=== PATIENT | male | born 1955 | race Caucasian/White ===

== ENCOUNTER 2020-10-29 10:49 | Emergency (ER) | payer SELFPAY ==
[~2020-10-29 10:49] MED LIST: ALDACTONE25 MG PO; CERTAGEN1 EACH PO; FEROSUL325 MG PO; FUROSEMIDE 40MG40 MG PO; IBUPROFEN400 MG PO; K-DUR20 MEQ PO; LANSOPRAZOLE30 M1 SL; OMEPRAZOLE40 MG PO; PROPRANOLOL HCL80 M1 PO
[2020-10-29 12:01] LABS: BASOPHIL 0.7 % (0-2); EOSINOPHIL 5.2 % (0-5); HCT 32.1 % (42.0-52.0); HGB 9.8 g/dl (13.2-18.0); LYMPHOCYTE 30.3 % (15-48); MCH 22.1 pg (25.0-31.0); MCHC 30.5 g/dL (32.0-36.0); MCV 72.3 fL (78.0-100.0); MONOCYTE 11.6 % (0-12); MPV 10.8 fL (6.0-9.5); NEUTROPHIL 51.8 % (41-80); NRBC 0; PLT 139 K/uL (150-400); RBC 4.44 M/uL (4.70-6.00); RDW 18.6 % (11.5-14.0); WBC 8.4 K/uL (4.0-10.5)
[2020-10-29 12:10] LABS: ALBUMIN 2.4 g/dL (3.4-5.0); BILIRUBIN - TOTAL 0.7 mg/dL (0.2-1.0); BUN/CREAT RATIO (CALC) 25.2 RATIO; CREATININE 1.11 mg/dL (0.67-1.17); GLOBULIN (CALCULATION) 3.1 g/dL; POTASSIUM 5.3 mmol/L (3.5-5.1); TOTAL PROTEIN 5.5 g/dL (6.4-8.2)
[2020-10-29 12:26] LABS: INR 1.35 (0.9-1.2); PTT 30.4 SECONDS (24.4-34.7)
== END 2020-10-29 14:52 | disposition other institution (70) ==
LOC: FER 10:49
PROVIDERS: Emergency Medicine
DX: K92.1 Melena (principal); K92.0 Hematemesis; I10 Essential (primary) hypertension; Z87.19 Personal history of other diseases of the digestive system; Z79.899 Other long term (current) drug therapy
CPT/HCPCS: 36415; 71045; 80053; 83605; 83690; 85025; 85610; 85730; 86850; 86900; 86901; 96372; C9113; J2354; J2405; J2550; J3430

== ENCOUNTER 2021-07-23 15:18 | Inpatient (IN) | payer MEDICARE ==
[~2021-07-23] VITALS: Ht 182.9 cm; Wt 117.9 kg
[2021-07-23 17:08] LABS: BASOPHIL 0.7 % (0-2); EOSINOPHIL 5.1 % (0-5); HCT 48.7 % (42.0-52.0); HGB 16.6 g/dl (13.2-18.0); LYMPHOCYTE 17.8 % (15-48); MCH 31.3 pg (25.0-31.0); MCHC 34.1 g/dL (32.0-36.0); MCV 91.9 fL (78.0-100.0); MONOCYTE 12.3 % (0-12); MPV 11.1 fL (6.0-9.5); NEUTROPHIL 63.7 % (41-80); NRBC 0; PLT 119 K/uL (150-400); RDW 13.8 % (11.5-14.0); WBC 6.9 K/uL (4.0-10.5)
[2021-07-23 17:32] LABS: ALBUMIN 3.5 g/dL (3.4-5.0); ALKALINE PHOSHATASE 179 U/L (46-116); ALT 25 U/L (16-63); AST 41 U/L (15-37); BILIRUBIN - TOTAL 1.8 mg/dL (0.2-1.0); BUN 14 mg/dL (7-18); BUN/CREAT RATIO (CALC) 13.3 RATIO; CHLORIDE 108 mmol/L (98-107); CO2 (BICARBONATE) 24 mmol/L (21-32); CREATININE 1.05 mg/dL (0.67-1.17); GLOBULIN (CALCULATION) 3.7 g/dL; GLUCOSE 117 mg/dL (74-106); LIPASE 275 U/L (73-393); POTASSIUM 4.6 mmol/L (3.5-5.1); TOTAL PROTEIN 7.2 g/dL (6.4-8.2)
[2021-07-23] MEDS ORDERED: PROTONIX 40MG T40 MG PO (19:59)
[2021-07-23] MEDS ORDERED: COREG 6.25MG6.25 MG PO (19:59)
[2021-07-23] MEDS ORDERED: LACTULOSE10 G/15 ML PR (20:01)
[2021-07-23] MEDS ORDERED: REMERON15 MG PO (20:02)
[2021-07-23] MEDS ORDERED: LASIX20 MG PO (20:03)
[2021-07-23] MEDS ORDERED: XIFAXAN550 MG PO (20:06)
[2021-07-23] MEDS ORDERED: ALDACTONE50 MG PO (20:07)
[2021-07-23] MEDS ORDERED: FEOSOL325 MG PO (20:07)
[2021-07-23 22:43] LABS: BILIRUBIN NEGATIVE (NEGATIVE); BLOOD 3+ Ery/uL (NEGATIVE); CLARITY CLEAR (CLEAR); COLOR YELLOW (YELLOW); GLUCOSE (U) NORMAL (NORMAL); LEUKOCYTES NEGATIVE Leu/uL (NEGATIVE); NITRITE NEGATIVE (NEGATIVE); PROTEIN NEGATIVE (NEGATIVE); UROBILINOGEN 0.2 mg/dL (0.2-1.0); pH 7.5 (5.0-9.0)
[2021-07-23 22:45] LABS: BARBITURATES NEGATIVE (NEGATIVE); ECSTASY (MDMA) NEGATIVE (NEGATIVE); MARIJUANA (THC) NEGATIVE (NEGATIVE); METHADONE NEGATIVE (NEGATIVE); OPIATES NEGATIVE (NEGATIVE)
[2021-07-23 22:46] LABS: AMPHETAMINES NEGATIVE (NEGATIVE); OXYCODONE NEGATIVE (NEGATIVE)
[2021-07-23 22:52] LABS: BACTERIA TRACE; URINARY RBC 20-50
[2021-07-23 22:53] LABS: AMORPHOUS URATES CRYSTALS TRACE; TRANSITIONAL EPITHELIAL CELLS RARE
[2021-07-24 05:23] LABS: BASOPHIL 0.5 % (0-2); EOSINOPHIL 3.7 % (0-5); HGB 15.3 g/dl (13.2-18.0); LYMPHOCYTE 20.2 % (15-48); MCH 30.8 pg (25.0-31.0); MCV 90.7 fL (78.0-100.0); MONOCYTE 12.2 % (0-12); MPV 10.2 fL (6.0-9.5); NEUTROPHIL 63.3 % (41-80); NRBC 0; RBC 4.96 M/uL (4.70-6.00); RDW 13.6 % (11.5-14.0); WBC 8.3 K/uL (4.0-10.5)
[2021-07-24 05:34] LABS: PLT 99 K/uL (150-400)
[2021-07-24 05:42] LABS: INR 1.36 (0.9-1.2); PROTHROMBIN TIME 16.1 SECONDS (11.8-13.4); PTT 30.1 SECONDS (24.4-34.7)
[2021-07-24 05:51] LABS: ALBUMIN 3.1 g/dL (3.4-5.0); BILIRUBIN - DIRECT 0.7 mg/dL (0.00-0.20); CREATININE 0.94 mg/dL (0.67-1.17); GLOBULIN (CALCULATION) 3.3 g/dL; MAGNESIUM 1.9 mg/dL (1.8-2.4); PHOSPHORUS 4.1 mg/dL (2.6-4.7); TOTAL PROTEIN 6.4 g/dL (6.4-8.2)
--- NOTE | 2021-07-24 06:19 | NUR ---
07/24/21618 - I SELECTED THE WRONG TYPE OF RESTRAINT DOCUMENTATION (BEHAVIORAL) WHEN CREATING THE PLAN OF CARE. IT WAS BROUGHT TO MY ATTENTION AND I CORRECTED IT.
--- NOTE | 2021-07-24 13:41 | NUR ---
THIS RN SPOKE WITH PT AND SHE STATED THAT THE SUICIDAL INCIDENT REPORTED IN H&P WAS NOT LAST NIGHT 07/23/21 BUT HAPPENED THREE WEEKS PRIOR. NO SITTER IS NEEDED FOR PT.
[2021-07-25 06:06] LABS: BASOPHIL 0.6 % (0-2); EOSINOPHIL 3.6 % (0-5); HCT 42.5 % (42.0-52.0); HGB 14.4 g/dl (13.2-18.0); LYMPHOCYTE 21.3 % (15-48); MCHC 33.9 g/dL (32.0-36.0); MCV 91.4 fL (78.0-100.0); MPV 10.1 fL (6.0-9.5); NEUTROPHIL 58.3 % (41-80); NRBC 0; PLT 100 K/uL (150-400); RBC 4.65 M/uL (4.70-6.00); RDW 13.4 % (11.5-14.0); WBC 8.6 K/uL (4.0-10.5)
[2021-07-25 07:05] LABS: ALBUMIN 2.9 g/dL (3.4-5.0); BILIRUBIN - TOTAL 2.8 mg/dL (0.2-1.0); BUN/CREAT RATIO (CALC) 12.8 RATIO; CREATININE 1.09 mg/dL (0.67-1.17); GLOBULIN (CALCULATION) 3.1 g/dL; MAGNESIUM 1.8 mg/dL (1.8-2.4); PHOSPHORUS 3.3 mg/dL (2.6-4.7); POTASSIUM 4.1 mmol/L (3.5-5.1)
[2021-07-25] MEDS ORDERED: BACTRIM DS TAB1 EACH PO (08:19)
[2021-07-25] MEDS ORDERED: CLOTRIMAZOLE TOP (08:19)
[2021-07-25] MEDS ORDERED: LACTULOSE10 G/15 ML PR (08:23)
--- NOTE | 2021-07-25 13:40 | NUR ---
PT HAS URINATED AND D/C INSTRUCTION EXPLAINED TO PT AND PRATIBHA WITH HIM HIS BOTTLE OF [employer] MEDICATION WAS PLACED LITTLE SUITCASE THAT PRATIBHA HAD BROUGHT HIM WITH CLOTHING IN IT. STABLE ON HIS FEET, DRESSED SELF AND WAS TAKEN BY WHEEL CHAIR TO FRONT EXIT TO MEET PRATIBHA
== END 2021-07-25 13:15 | disposition home or self-care (01) | DRG 442 ==
LOC: FER 15:18 → FICU 22:07
PROVIDERS: Emergency Medicine; Nurse Practitioner; ADMIT Internal Medicine
DX: K72.00 Acute and subacute hepatic failure without coma (principal); C22.0 Liver cell carcinoma; R18.8 Other ascites; K76.6 Portal hypertension; I85.10 Secondary esophageal varices without bleeding; R78.81 Bacteremia; Z20.822 Contact with and (suspected) exposure to COVID-19; K74.60 Unspecified cirrhosis of liver; B19.20 Unspecified viral hepatitis C without hepatic coma; F17.210 Nicotine dependence, cigarettes, uncomplicated; I10 Essential (primary) hypertension; K21.9 Gastro-esophageal reflux disease without esophagitis; M51.36 Other intervertebral disc degeneration, lumbar region; Z79.899 Other long term (current) drug therapy; Z98.890 Other specified postprocedural states; Z78.1 Physical restraint status
CPT/HCPCS: 36415; 70450; 71045; 73020; 73501; 80053; 80305; 81001; 82140; 82248; 83690; 83735; 83880; 84100; 84145; 84439; 84443; 84484; 85025; 85610; 85730; 87040; 87088; 93005; 96372; C9113; G0480; J1630; J2060; J2405; J3370; J3486; J7040; U0002